=== PATIENT | male | born 1960 | race Caucasian/White ===

== ENCOUNTER → 2018-03-23 07:12 | Outpatient (CLI) | payer OTHER, SELFPAY ==
[2018-03-23 08:21] LABS: Add Manual Diff / Slide Review NO; Basophils Percent Auto 0.6 % (0-2); Eosinophils Percent Auto 1.7 % (2-4); Hematocrit 41.9 % (41-53); Hemoglobin 14.7 g/dL (13.5-17.5); Lymphocytes Percent Auto 23.1 % (25-40); Mean Corpuscular Hemoglobin 33.2 PG (26-34); Mean Corpuscular Volume 94.7 fL (80-100); Monocytes Percent Auto 12.4 % (3-14); Neutrophils Absolute Auto 3800 /uL (3000-5900); Neutrophils Percent Auto 62.2 % (50-75); Platelet Count 104 X10^3/uL (150-400); Red Blood Cell Count 4.43 X10^6/uL (4.5-5.9); Red Cell Distribution Width 14.6 % (11.6-14.8); White Blood Cell Count 6.2 X10^3/uL (4.5-11.0)
[2018-03-23 08:51] LABS: Cholesterol 225 mg/dL (140-199); HDL Cholesterol 43 mg/dL (40-60); LDL Cholesterol Calculated 153 mg/dL (<100); Lactate Dehydrogenase 423 U/L (313-618); Triglycerides 143 mg/dL (35-150)
[2018-03-23 09:09] LABS: Free T4, Direct Thyroxine 1.48 ng/dL (0.78-2.19)
[2018-03-23 09:21] LABS: Prostate Specific Antigen Scrn 0.277 ng/mL (0.1-4.0)
[2018-03-23 09:23] LABS: Thyroid Stimulating Hormone 0.04 uIU/mL (0.47-4.68)
[2018-03-23 11:52] LABS: Alanine Aminotransferase 69 IU/L (21-72); Albumin 4.5 g/dL (3.5-5.0); Albumin Globulin Ratio 1.6 (1.0-2.8); Alkaline Phosphatase 61 U/L (38-126); Aspartate Aminotransferase 40 IU/L (17-59); BUN Creatinine Ratio 21.4 (6-22); Bilirubin Total 0.5 mg/dL (0.2-1.3); Blood Urea Nitrogen 15 mg/dL (9-20); Calcium 9.5 mg/dL (8.4-10.2); Carbon Dioxide 25 mmol/L (22-32); Chloride 102 mmol/L (98-107); Estimated Glomerular Filt Rate > 60.0 mL/min (>60); Globulin 2.9 g/dL (1.7-4.1); Glucose 112 mg/dL (70-100); HEMOLYSIS < 15 (0-50); Potassium 4.5 mmol/L (3.4-5.1); Sodium 141 mmol/L (137-145); Total Protein 7.4 g/dL (6.3-8.2)
== END ==
PROVIDERS: PCP Family Medicine; Visit Provider Family Medicine
DX: Z85.79 Personal history of other malignant neoplasms of lymphoid, hematopoietic and related tissues (principal); Z12.5 Encounter for screening for malignant neoplasm of prostate; E78.5 Hyperlipidemia, unspecified; E03.9 Hypothyroidism, unspecified
CPT/HCPCS: 36415; 80053; 80061; 83615; 84439; 84443; 85025; G0103

== ENCOUNTER 2019-01-04 20:29 | Emergency (ER) | payer OTHER, SELFPAY ==
[2019-01-04 20:38] VITALS: BP 112/70; PULSE 77; RESP 15; TEMP 36.6; O2SAT 99; BMI 36.6
[2019-01-04] MEDS: SODIUM CHLORIDE 0.9% 1,000 ML 1000 ML IV ×2 (20:50→21:49)
[2019-01-04 20:52] LABS: Add Manual Diff / Slide Review NO; Basophils Absolute Auto 100 /uL (0-100); Basophils Percent Auto 0.7 % (0-2); Eosinophils Absolute Auto 100 /uL (0-450); Eosinophils Percent Auto 0.9 % (2-4); Hematocrit 50.6 % (41-53); Hemoglobin 17.6 g/dL (13.5-17.5); Lymphocytes Absolute Auto 2700 /uL (1100-4500); Lymphocytes Percent Auto 26.7 % (25-40); Mean Corpuscular HGB Conc 34.9 % (30-36); Mean Corpuscular Hemoglobin 32.9 PG (26-34); Mean Corpuscular Volume 94.4 fL (80-100); Monocytes Absolute Auto 1200 /uL (0-900); Monocytes Percent Auto 12.2 % (3-14); Neutrophils Absolute Auto 6000 /uL (1500-7000); Neutrophils Percent Auto 59.5 % (50-75); Platelet Count 125 X10^3/uL (150-400); Red Blood Cell Count 5.36 X10^6/uL (4.5-5.9); White Blood Cell Count 10.1 X10^3/uL (4.5-11.0)
--- NOTE | 2019-01-04 20:54 | ED.GENADULT ---
HPI - General Adult General Chief complaint: Syncope Stated complaint: syncope Time Seen by Provider: 01/04/19 20:35 Source: patient Mode of arrival: EMS Limitations: no limitations History of Present Illness HPI narrative: Patient is a 58-year-old male was brought in by EMS after having a syncopal event at home. Patient states that he has been doing a bowel prep at home for a routine colonoscopy scheduled for tomorrow. He states he did the 1st half of the bowel prep earlier this evening. He states that he has had multiple episodes of loose diarrhea which was not a surprise to him. He states that after his last episode he started to not feel well. He went to lay down was watching TV. He states that he felt like he needed to go the bathroom again and stood up and after going to the bathroom felt very lightheaded. He states that he fell forward. Did not hit his head. Did not completely lose consciousness. Did have an episode of stool incontinence while lying on the floor. Then started to have nausea and vomited. His called EMS who brought him into the emergency department for evaluation. Related Data Home Medications Medication Instructions Recorded Confirmed omega 9-nkm-hcq-fish oil [Fish Oil] 1 cap PO QDAY #0 04/19/17 02/19/18 multivitamin 1 cap PO DAILY 02/19/18 02/19/18 Previous Rx's Medication Instructions Recorded amoxicillin 875 mg-potassium 1 tab PO BID #14 tab 02/19/18 clavulanate 125 mg tablet levothyroxine 125 mcg tablet 125 mcg PO QDAY #30 tab 03/21/18 sertraline 50 mg tablet 50 mg PO QDAY #90 tab 08/24/18 Allergies Allergy/AdvReac Type Severity Reaction Status Date / Time No Known Drug Allergies Allergy Verified 01/04/19 20:38 Review of Systems Constitutional Constitutional: Denies fever(s), Denies headache(s) and Denies weakness ENT Ears, Nose, Mouth, and Throat: Reports dizziness, Denies headache(s), Denies neck pain and Reports disequilibrium Cardiovascular Cardiovascular: Denies chest pain, Reports syncope and Denies dyspnea Respiratory Respiratory: Denies dyspnea Gastrointestinal Gastrointestinal: Denies abdominal pain, Reports diarrhea, Reports nausea and Reports vomiting Genitourinary Genitourinary: Denies dysuria Musculoskeletal Musculoskeletal: Denies back pain, Denies myalgias, Denies arthralgias and Denies neck pain Integumentary/Breasts Skin/Breast: Denies lesions and Denies rash Neurologic Neurologic: Denies behavioral changes, Reports dizziness, Reports syncope, Denies headache(s), Reports disequilibrium and Denies weakness Psychiatric Psychiatric: Denies behavioral changes Hematologic/Lymphatic Hematologic/Lymphatic: Denies easy bleeding and Denies easy bruising Allergic/Immunologic Allergic/Immunologic: Denies urticaria PFS Medical History Anxiety (Chronic) Diverticular disease (Chronic ~1986) GERD (gastroesophageal reflux disease) (Chronic) Hip pain (Chronic) Hyperlipidemia (Resolved) Hypertension (Resolved) Hypogonadism (Chronic) Hypothyroidism (Chronic) Non-Hodgkin lymphoma (Resolved 2012) Obstructive sleep apnea (Chronic) Plantar fasciitis (Resolved 11/2015) Thrombocytopenia (Chronic) Surgical History (Updated 02/13/18 @ 17:26 by Carmen Sumner) History of colonoscopy (Resolved 01/19/07) Hx laparoscopic cholecystectomy (Resolved 2012) Hx of autologous stem cell transplant (Resolved 06/2013) Family History (Updated 02/13/18 @ 17:20 by Carmen Sumner) Father Type 2 diabetes mellitus with complication, unspecified intermediate accountant insulin use status Essential hypertension CAD (coronary artery disease) Mother Essential hypertension Diabetes mellitus CAD (coronary artery disease) Brother No problems noted. Brother No problems noted. Brother No problems noted. Brother No problems noted. Sister No problems noted. Sister No problems noted. Sister No problems noted. Sister No problems noted. Social History Smoking Status: Never smoker alcohol intake: current Family History (Updated 02/13/18 @ 17:20 by Carmen Sumner) Father Type 2 diabetes mellitus with complication, unspecified intermediate accountant insulin use status Essential hypertension CAD (coronary artery disease) Mother Essential hypertension Diabetes mellitus CAD (coronary artery disease) Brother No problems noted. Brother No problems noted. Brother No problems noted. Brother No problems noted. Sister No problems noted. Sister No problems noted. Sister No problems noted. Sister No problems noted. Social History Smoking Status: Never smoker alcohol intake: current Exam Initial Vital Signs Initial Vital Signs: Vital Signs Temperature 97.9 F 01/04/19 20:38 Pulse Rate 77 01/04/19 20:38 Respiratory Rate 15 01/04/19 20:38 Blood Pressure 112/70 01/04/19 20:38 Pulse Oximetry 99 01/04/19 20:38 Const General: diaphoretic Orientation: alert, awake and oriented x3 HENMT Head: normal to inspection and normocephalic Resp Effort & Inspection: normal respiratory effort Auscultation: clear to auscultation bilaterally Cardio Rate: regular rate Rhythm: regular rhythm GI Inspection: non-distended Palpation: soft Back/Spine/Pelvis Cervical Spine: No cervical spinal tenderness Thoracic/Lumbar Spine: No thoracic spinal tenderness and No lumbar spinal tenderness Skin Lesions: no lesions Rashes: no rashes Neuro General: alert, awake and oriented x3 Cognition: normal cognition Speech: speech normal Sensory Exam: no sensory deficits noted Extrem General: normal to inspection and capillary refill normal Psych Appearance: grossly normal and well kempt Course Orders Ordered: ED Orders 01/04/19 20:38 Complete Blood Count AUTO DIFF Stat Comprehensive Metabolic Panel Stat Troponin & CK Cardiac Panel Stat 01/04/19 20:41 EKG-12 Lead Stat Discontinued Medications Sodium Chloride (Normal Saline 0.9%) 1,000 mls @ 1,000 mls/hr IV BOLUS ONE Stop: 01/04/19 21:40 Last Infusion: 01/04/19 21:45 Dose: 1,000 mls/hr Documented by: Admin: 01/04/19 20:50 Dose: 1,000 mls/hr Documented by: ADRIANL Sodium Chloride (Normal Saline 0.9%) 1,000 mls @ 1,000 mls/hr IV BOLUS ONE Stop: 01/04/19 22:43 Last Infusion: 01/04/19 22:50 Dose: 1,000 mls/hr Documented by: Admin: 01/04/19 21:49 Dose: 1,000 mls/hr Documented by: LATHA Vital Signs Vital signs: Vital Signs - 8 hr 01/04/19 20:38 01/04/19 21:30 01/04/19 22:53 Temperature 97.9 F Pulse Rate 77 75 73 Respiratory Rate 15 16 13 Blood Pressure 112/70 Blood Pressure [Left Arm] 109/73 124/76 Pulse Oximetry 99 97 98 Medical Decision Making Lab Data Lab results reviewed: Yes I reviewed the patient's lab results. Result diagrams: 01/04/19 20:38 01/04/19 20:38 Labs: Lab Results 01/04/19 01/04/19 Range/Units 20:38 20:38 WBC 10.1 (4.5-11.0) X10^3/uL RBC 5.36 (4.5-5.9) X10^6/uL Hgb 17.6 H (13.5-17.5) g/dL Hct 50.6 (41-53) % MCV 94.4 (80-100) fL MCH 32.9 (26-34) PG MCHC 34.9 (30-36) % RDW 15.0 H (11.6-14.8) % Plt Count 125 L (150-400) X10^3/uL Neut % (Auto) 59.5 (50-75) % Lymph % (Auto) 26.7 (25-40) % [place] % (Auto) 12.2 (3-14) % Eos % (Auto) 0.9 L (2-4) % Baso % (Auto) 0.7 (0-2) % Neut # (Auto) 6000 (7272-6806) /uL Lymph # (Auto) 2700 (1431-3406) /uL [place] # (Auto) 1200 H (0-900) /uL Eos # (Auto) 100 (0-450) /uL Baso # (Auto) 100 (0-100) /uL Sodium 137 (137-145) mmol/L Potassium 3.7 (3.4-5.1) mmol/L Chloride 98 (98-107) mmol/L Carbon Dioxide 24 (22-32) mmol/L BUN 17 (9-20) mg/dL Creatinine 1.20 (0.66-1.25) mg/dL Estimated GFR > 60.0 (>60) mL/min BUN/Creatinine Ratio 14.2 (6-22) Glucose 157 H (70-100) mg/dL Calcium 10.6 H (8.4-10.2) mg/dL Total Bilirubin 0.9 (0.2-1.3) mg/dL AST 51 (17-59) IU/L ALT 75 H (21-72) IU/L Alkaline Phosphatase 73 (38-126) U/L Total Creatine Kinase 85 (55-170) U/L CK-MB (CK-2) TNP CK-MB (CK-2) Rel Index TNP Troponin I < 0.012 (0.01-0.034) ng/mL Total Protein 9.3 H (6.3-8.2) g/dL Albumin 5.3 H (3.5-5.0) g/dL Globulin 4.0 (1.7-4.1) g/dL Albumin/Globulin Ratio 1.3 (1.0-2.8) Point of Care Testing Glucose POC 126 Point of care testing: Point of Care Testing Glucose POC 126 ECG Data Attestation: I personally reviewed and interpreted this ECG as follows: Prior ECG tracings: not available for review Interpretation: Sinus rhythm Ventricular rate is 74 Right bundle-branch block No ST T wave changes MDM Narrative Medical decision making narrative: Patient arrived pale and diaphoretic. He has no injuries reported from the event. He has no neck pain. he was given fluids here in the emergency department and felt much better and was able to ambulate. I do suspect that his symptoms result of dehydration secondary to the bowel prep. He is not going to take the 2nd half of the prep given his current situation. I did inform him he should talk with his operative provider tomorrow. I do not feel that the episode that happened this evening should preclude him from having the procedure however this does need to be cleared by the operative provider he was informed to continue the rest of the preprocedure instructions except for holding on the 2nd half of the bowel prep. He expressed understanding and agreement with plan. Discharge Plan Departure Patient Disposition: Home Clinical Impression: Acute dehydration, Anxiety Syncope Qualifiers: Syncope type: unspecified Qualified Code(s): R55 - Syncope and collapse Discharge Date/Time: 01/04/19 23:44 Instructions: Fainting Activity Restrictions/Additional Instructions: Recommend you follow all of your preprocedure instructions given to you by the general surgeon. The events tonight do not necessarily prohibit you from having the colonoscopy tomorrow however talk with the operative provider. Return to the emergency department for any new or worsening symptoms Prescriptions: No Action multivitamin capsule 1 cap PO DAILY RF: 0 amoxicillin-pot clavulanate [Augmentin] 875-125 mg tablet 1 tab PO BID Qty: 14 RF: 0 omega 8-veh-odt-fish oil [Fish Oil] 1,000 MG capsule 1 cap PO QDAY Qty: 0 RF: 0 levothyroxine [Synthroid] 125 mcg tablet 125 mcg PO QDAY Qty: 30 RF: 2 sertraline 50 mg tablet 50 mg PO QDAY Qty: 90 RF: 1 Referrals: Jaylan Oliver MD [Primary Care Provider] -
[2019-01-04 21:03] LABS: Alanine Aminotransferase 75 IU/L (21-72); Albumin 5.3 g/dL (3.5-5.0); Albumin Globulin Ratio 1.3 (1.0-2.8); Alkaline Phosphatase 73 U/L (38-126); Aspartate Aminotransferase 51 IU/L (17-59); BUN Creatinine Ratio 14.2 (6-22); Bilirubin Total 0.9 mg/dL (0.2-1.3); Blood Urea Nitrogen 17 mg/dL (9-20); Calcium 10.6 mg/dL (8.4-10.2); Carbon Dioxide 24 mmol/L (22-32); Chloride 98 mmol/L (98-107); Creatine Kinase 85 U/L (55-170); Estimated Glomerular Filt Rate > 60.0 mL/min (>60); Glucose 157 mg/dL (70-100); HEMOLYSIS < 15 (0-50); Potassium 3.7 mmol/L (3.4-5.1); Sodium 137 mmol/L (137-145); Total Protein 9.3 g/dL (6.3-8.2)
[2019-01-04 21:15] LABS: Troponin I < 0.012 ng/mL (0.01-0.034)
[2019-01-04 21:30] VITALS: BP 109/73; PULSE 75; RESP 16; O2SAT 97
--- NOTE | 2019-01-04 21:33 | PC.NURSE ---
Pt states had a syncopal episode tonight while on toilet, denies any pain not taking blood thinners. Pt is prepping for a colonoscopy tomorrow. Diaphoretic upon arrival.
[2019-01-04 22:53] VITALS: BP 124/76; PULSE 73; RESP 13; O2SAT 98
--- NOTE | 2019-01-04 23:09 | PC.NURSE ---
ambulated pt around the department. Pt walked with steady gait. No complaints of dizziness or lightheadedness. Rn aware.
== END 2019-01-04 23:44 | disposition home or self-care (01) ==
PROVIDERS: Emergency Provider Emergency Medicine; PCP Family Medicine
DX: E86.0 Dehydration (principal); R55 Syncope and collapse
CPT/HCPCS: 36591; 80053; 82550; 82962; 84484; 85025; 93005; 93010; 96360; 96361; 99283; 99284

== ENCOUNTER 2019-01-05 07:38 | Day surgery (SDC) | payer OTHER, SELFPAY ==
--- NOTE | 2019-01-05 | PATH_ITS ---
[facility] Accession Number: [id number] . 01 Material submitted: . colon - POLYP AT 30 CM/SIGMOID COLON X2 . 01 Clinical history: . ENCOUNTER FOR SCREENING FOR MALIGNANT NEOPLASM . 02 Diagnosis: Sigmoid Colon, Polyps at 30 cm x2, Biopsies: Polypoid granulation tissue, consistent with inflammatory polyps. Negative for dysplasia and malignancy. V 01/08/2019 1009 Local . 02 Electronically signed: . Collette Chiu MD, Pathologist NPI- [id number] . 01 Gross description: . POLYP AT 30 CM/SIGMOID COLON X2: Received in formalin are 2 fragment(s) of vogel, soft tissue measuring 0.2 x 0.2 x 0.2 cm to 0.3 x 0.2 x 0.2 cm which is entirely submitted and submitted entirely in 1 cassette(s) /[facility] 01/05/2019 1918 Local . 02 Pathologist provided ICD-10: K63.5 . 02 CPT . 381856 Performed at: 01 [facility] [address] [facility] [address], [place], [place] [id number] MD Hector Oleary MD Phone: [phone] Performed at: 02 [facility] [address] [place], [place] [id number] MD Collette Chiu MD Phone: [phone]
[2019-01-05] MEDS: SODIUM CHLORIDE 0.9% 1,000 ML 200 ML IV (07:56)
[2019-01-05 08:11] VITALS: BP 129/80; PULSE 94; RESP 16; TEMP 36.2; O2SAT 97; BMI 36.1
--- NOTE | 2019-01-05 08:38 | P.HP_ITS ---
History of Present Illness History of Present Illness Date Patient Seen: 01/05/19 Time Patient Seen: 08:39 Chief complaint: [id number] Narrative: 58-year-old white male here for a screening colonoscopy. He has had several colonoscopies in the past with a history of diverticulitis beginning in his 20s. History is also significant for having a non-Hodgkin's lymphoma treated with stem cell therapy in 2013 he is cancer free at this time. Denies melena or hematochezia has no abdominal pain Patient History Medical History Anxiety (Chronic) Diverticular disease (Chronic ~1986) GERD (gastroesophageal reflux disease) (Chronic) Hip pain (Chronic) Hyperlipidemia (Resolved) Hypertension (Resolved) Hypogonadism (Chronic) Hypothyroidism (Chronic) Non-Hodgkin lymphoma (Resolved 2012) Obstructive sleep apnea (Chronic) Plantar fasciitis (Resolved 11/2015) Thrombocytopenia (Chronic) Surgical History History of colonoscopy (Resolved 01/19/07) Hx laparoscopic cholecystectomy (Resolved 2012) Hx of autologous stem cell transplant (Resolved 06/2013) Family History (Updated 02/13/18 @ 17:20 by Carmen Sumner) Father Type 2 diabetes mellitus with complication, unspecified long-term insulin use status Essential hypertension CAD (coronary artery disease) Mother Essential hypertension Diabetes mellitus CAD (coronary artery disease) Brother No problems noted. Brother No problems noted. Brother No problems noted. Brother No problems noted. Sister No problems noted. Sister No problems noted. Sister No problems noted. Sister No problems noted. Social History household members: spouse Smoking Status: Never smoker alcohol intake: current Family & Social History Family History Father Type 2 diabetes mellitus with complication, unspecified exterminator helper termite insulin use status Essential hypertension CAD (coronary artery disease) Mother Essential hypertension Diabetes mellitus CAD (coronary artery disease) Brother No problems noted. Brother No problems noted. Brother No problems noted. Brother No problems noted. Sister No problems noted. Sister No problems noted. Sister No problems noted. Sister No problems noted. Social History: household members spouse Tobacco & Substance use: Smoking Status Never smoker alcohol intake current alcohol intake frequency holiday/special occasion Substance Use Type does not use Meds Home Medications and Allergies Home Medications Medication Instructions Recorded Confirmed Type omega 5-fjg-kix-fish oil [Fish Oil] 1 cap PO QDAY #0 04/19/17 01/05/19 History amoxicillin 875 mg-potassium 1 tab PO BID #14 tab 02/19/18 Rx clavulanate 125 mg tablet multivitamin 1 cap PO DAILY 02/19/18 01/05/19 History levothyroxine 125 mcg tablet 125 mcg PO QDAY #30 tab 03/21/18 01/05/19 Rx sertraline 50 mg tablet 50 mg PO QDAY #90 tab 08/24/18 01/05/19 Rx levothyroxine 88 mcg PO DAILY 01/05/19 01/05/19 History Allergies Allergy/AdvReac Type Severity Reaction Status Date / Time No Known Drug Allergies Allergy Verified 01/05/19 08:18 Exam Vital Signs (past 8 hours): - 01/05/19 08:11 Temperature 97.1 F L Pulse Rate 94 H Respiratory Rate 16 Blood Pressure 129/80 Pulse Oximetry 97 Oxygen Delivery Method Room Air Narrative Exam Narrative: Patient is alert and oriented with no complaints Lungs are clear with no rales or wheezes Heart regular rhythm no murmur Abdomen soft no organomegaly Rectal be done at time of colonoscopy Assessment & Plan Assessment & Plan narrative: Patient here for screening colonoscopy with a history of non-Hodgkin's lymphoma history of diverticulitis no history of polyps.
[2019-01-05] MEDS: fentaNYL 250 MCG/5 ML INJ IV (09:44)
[2019-01-05] MEDS: MIDAZOLAM 5 MG/5 ML VIAL IV (09:45)
--- NOTE | 2019-01-05 09:46 | PM.OP.ENDO ---
Operative Date/Time/Diagnoses Date of procedure: 01/05/19 Time of procedure: 09:46 Pre-op diagnosis: Screening colonoscopy Post-op diagnosis: other (Sigmoid diverticulosis with 2 polyps found in the sigmoid colon each about 6 or 7 mm in diameter these were removed and submitted. They were at 30 cm in the sigmoid colon) Procedure & Clinicians Study performed: Colonoscopy to the cecum with polypectomy x2 at 30 cm Same procedure as scheduled: Yes Surgeon: Blake Lizarraga Procedure Notes SCOAP/Timeout: This was done Procedure in detail: The patient was properly identified during surgical pause he was given a total of 4 mg of Versed and 150 micro g of fentanyl and remained comfortable throughout the procedure the flexible fiberoptic colonoscope was inserted transanally to the cecum. Patient had sigmoid diverticulosis which was noted. This was also photographed. Was also found to have 2 small polyps 5-7 mm in diameter in the sigmoid colon at 30 cm. These were removed with a cold snare. Both polyps were submitted. No other significant abnormalities were encountered. Procedure was well tolerated. Scope withdrawal time: 11 Sedation minutes: 21 Findings: polyp Impression: Sigmoid diverticulosis 2 polyps in the sigmoid colon removed Post-procedure Recommendations: Colonscopy in 3 years Disposition: PACU
[2019-01-05 09:50] VITALS: BP 111/69; PULSE 84; RESP 12; TEMP 37.3; O2SAT 97
[2019-01-05 09:57] VITALS: BP 113/66; PULSE 79; RESP 11; O2SAT 97
[2019-01-05 10:02] VITALS: BP 106/76; PULSE 81; RESP 12; O2SAT 97
[2019-01-05 10:04] VITALS: BP 126/76; PULSE 80; RESP 14; TEMP 37; O2SAT 96
[2019-01-05 10:19] VITALS: BP 119/70; PULSE 77; RESP 16; TEMP 36.7; O2SAT 99
--- NOTE | 2019-01-05 10:33 | SUR.PHASEII ---
Daughter brought in, D/C instructions discussed, both voiced an understanding. Pt dressed and left when ready and left in stable condition.
== END 2019-01-05 10:35 | disposition home or self-care (01) ==
PROVIDERS: PCP Family Medicine; Visit Provider Surgery
PROC: 0DJD8ZZ Inspection of Lower Intestinal Tract, Via Natural or Artificial Opening Endoscopic (ICD-10-PCS; CPT 45378; principal; 2019-01-05 09:00)
DX: Z12.11 Encounter for screening for malignant neoplasm of colon (principal); F41.9 Anxiety disorder, unspecified; I10 Essential (primary) hypertension; E78.5 Hyperlipidemia, unspecified; E03.8 Other specified hypothyroidism; K57.30 Diverticulosis of large intestine without perforation or abscess without bleeding; D12.5 Benign neoplasm of sigmoid colon
CPT/HCPCS: 45385; 99152; J2250; J3010

== ENCOUNTER → 2019-10-01 16:02 | Outpatient (CLI) | payer OTHER, SELFPAY ==
[2019-10-01 18:24] LABS: Testosterone 175 ng/dL (71.8-623)
== END ==
PROVIDERS: PCP Family Medicine; Referring Provider Family Medicine; Visit Provider Family Medicine
DX: E29.1 Testicular hypofunction (principal)
CPT/HCPCS: 36415; 84403

== ENCOUNTER 2023-05-19 07:44 | Day surgery (SDC) | payer BC, SELFPAY ==
--- NOTE | 2023-05-19 | PATH_ITS ---
[facility] Accession Number: [id number] No. of containers..05 Tissue . 01 Material submitted: . PART A: cecum - CECAL POLYPS X 3 PART B: colon - TRANSVERSE POLYP PART C: colon - DESCENDING POLYPS X 3 PART D: sigmoid colon - SIGMOID POLYP PART E: rectum - RECTAL POLYP . 01 Diagnosis: A. Cecal Polyps, Biopsy: Inflammatory polyps. Additional colonic mucosa with benign lymphoid aggregate. . B. Transverse Colon Polyp, Biopsy: Inflammatory polyp. . C. Descending Colon Polyps, Biopsy: Tubular adenomas. . D. Sigmoid Colon Polyp, Biopsy: Inflammatory polyp. . E. Rectal Polyp, Biopsy: Inflammatory polyp. [facility] 05/23/2023 1610 Local . 01 Electronically signed: . Mela Yrok MD, Pathologist NPI- [id number] . 01 Gross description: . Part A: CECAL POLYPS X 3: Received in formalin are multiple fragment(s) of vogel, soft tissue measuring 0.3 x 0.3 x 0.3 cm to 1.2 x 0.2 x 0.2 cm submitted entirely in 1 cassette(s) Part B: TRANSVERSE POLYP: Received in formalin is 1 fragment(s) of vogel, soft tissue measuring 0.5 x 0.3 x 0.3 cm submitted entirely in 1 cassette(s) Part C: DESCENDING POLYPS X 3: Received in formalin are 3 fragment(s) of vogel, soft tissue measuring 0.3 x 0.3 x 0.3 cm to 0.7 x 0.6 x 0.5 cm submitted entirely in 1 cassette(s) Part D: SIGMOID POLYP: Received in formalin are 2 fragment(s) of vogel, soft tissue measuring 0.2 x 0.2 x 0.2 cm to 0.7 x 0.6 x 0.6 cm submitted entirely in 1 cassette(s) Part E: RECTAL POLYP: Received in formalin is 1 fragment(s) of vogel, soft tissue measuring 0.5 x 0.4 x 0.4 cm submitted entirely in 1 cassette(s) /[facility] 05/20/2023 2213 Local . 01 Pathologist provided ICD-10: D12.4, K51.40, K63.89 . 01 CPT . 418017, 103276, 085909, 538788, 108854 Specimen Comment: A courtesy copy of this report has been sent to [phone] Performed at: 01 [facility] [address] [address], [place], [place] [id number] MD Hector Oleary MD Phone: [phone]
--- NOTE | 2023-05-19 09:02 | P.HP_ITS ---
History of Present Illness History of Present Illness Date Patient Seen: 05/19/23 Time Patient Seen: 09:02 Chief complaint: Colonoscopy Narrative: Garry is a 63-year-old man who is here for colonoscopy. He is last colonoscopy was in 2019 and 2 adenomatous polyps were removed. The recommendation was to have another 1 in 3 years. He had a sleeve gastrectomy last year. Although he has a history of thrombocytopenia due to his stem cell transplant he has not needed to have platelet transfusions for prior procedures. [facility] Medical History (Updated 05/19/23 @ 09:03 by Delfin Gonzalez MD) Hip pain Anxiety Thrombocytopenia Hyperlipidemia Hypertension Obstructive sleep apnea Plantar fasciitis (11/2015) Hypothyroidism Hypogonadism Non-Hodgkin lymphoma (2012) Diverticular disease (~1986) GERD (gastroesophageal reflux disease) Surgical History History of colonoscopy (01/19/07) Hx laparoscopic cholecystectomy (2012) Hx of autologous stem cell transplant (06/2013) Family History Father Type 2 diabetes mellitus with complication, unspecified extermination supervisor insulin use status Essential hypertension CAD (coronary artery disease) Mother Essential hypertension Diabetes mellitus CAD (coronary artery disease) Brother No problems noted. Brother No problems noted. Brother No problems noted. Brother No problems noted. Sister No problems noted. Sister No problems noted. Sister No problems noted. Sister No problems noted. Social History household members: spouse Smoking Status: Never smoker alcohol intake: current Meds Home Medications and Allergies Home Medications Medication Instructions Recorded Confirmed Type omega 1-ueg-hgo-fish oil 1,000 mg 1 cap PO QDAY ##0 04/19/17 01/05/19 History (120 mg-180 mg) capsule (Fish Oil) multivitamin 1 cap PO DAILY 02/19/18 01/05/19 History levothyroxine 125 mcg tablet 125 mcg PO QDAY #30 tabs 03/21/18 01/05/19 Rx (Synthroid) sertraline 50 mg tablet 50 mg PO QDAY #90 tabs 08/24/18 01/05/19 Rx levothyroxine 88 mcg tablet 88 mcg PO DAILY 01/05/19 05/19/23 History sodium,potassium,mag sulfates 17.5 See Rx Instructions PO .COMPLEX 03/23/23 Rx gram-3.13 gram-1.6 gram oral soln #354 mL (Suprep Bowel Prep Kit) Allergies Allergy/AdvReac Type Severity Reaction Status Date / Time No Known Drug Allergies Allergy Verified 05/19/23 08:42 Exam Const General: healthy appearing and No acute distress Objective Labs 05/19/23 08:48 Assessment & Plan Assessment and plan (1) History of adenomatous polyp of colon: Status: Acute Plan We reviewed the risks and benefits of colonoscopy for history of adenomatous polyps and he would like to proceed.
[2023-05-19 09:06] VITALS: BP 114/78; PULSE 79; RESP 19; TEMP 36.2; O2SAT 99
[2023-05-19 09:08] LABS: Add Manual Diff / Slide Review NO; Basophils Absolute Auto 100 /uL (0-100); Basophils Percent Auto 0.8 % (0-2); Eosinophils Absolute Auto 100 /uL (0-450); Eosinophils Percent Auto 1.2 % (2-4); Hematocrit 53.9 % (41-53); Hemoglobin 18.5 g/dL (13.5-17.5); Lymphocytes Absolute Auto 1300 /uL (1100-4500); Lymphocytes Percent Auto 20.3 % (25-40); Mean Corpuscular HGB Conc 34.3 % (30-36); Mean Corpuscular Hemoglobin 31.8 PG (26-34); Mean Corpuscular Volume 92.8 fL (80-100); Monocytes Absolute Auto 700 /uL (0-900); Monocytes Percent Auto 11.1 % (3-14); Neutrophils Absolute Auto 4400 /uL (1500-7000); Neutrophils Percent Auto 66.6 % (50-75); Platelet Count 106 X10^3/uL (150-400); Red Blood Cell Count 5.81 X10^6/uL (4.5-5.9); White Blood Cell Count 6.6 X10^3/uL (4.5-11.0)
[2023-05-19] MEDS: LACTATED RINGERS 1,000 ML 42 ML IV ×2 (09:13→10:05)
--- NOTE | 2023-05-19 09:51 | PM.OP.COLON ---
Operative Date/Time/Diagnoses Date of procedure: 05/19/23 Time of procedure: 09:51 Pre-op diagnosis: History of polyps Post-op diagnosis: same Procedure & Clinicians Study performed: Colonoscopy Same procedure as scheduled: Yes Surgeon: Delfin Gonzalez Procedure Notes Procedure in detail: Surgeon: Delfin Gonzalez MD Anesthesia: Robi Reyes MD Procedure: The patient was brought to the endoscopy suite, placed in left lateral decubitus position. The patient was connected to monitoring devices. A time-out was performed. Sedation was administered. Once the patient was adequately sedated, a digital rectal exam was performed and was normal. The scope was then inserted and advanced to the cecum where the appendiceal orifice was identified and photographed. The scope was then slowly withdrawn over greater than 6 minutes. The mucosa was thoroughly inspected. There were 3 5 mm polyps in the cecum, all removed with cold snare and sent together. There was 1 5 mm polyps in the transverse colon removed with cold snare. Two 5 mm polyps and an 8 mm polyp were removed from the descending colon with a cold snare. A clip was applied to the 8 mm polypectomy site with good hemostasis. A 1 cm polyp on a stalk was removed from the sigmoid colon with a cold snare. Good hemostasis was observed from all polypectomy sites by the conclusion of the case. The scope was retroflexed in the rectum. Some internal hemorrhoids were noted. The scope was straightened and removed. The patient was awakened and brought to recovery. Scope withdrawal time: 28 minutes Sedation time: 34 minutes EBL: 10 mL Findings: 3 subcentimeter cecal polyps, 1 subcentimeter transverse colon polyp, 3 subcentimeter descending colon polyps and a 1 cm rectal polyp Post-procedure Disposition: PACU
[2023-05-19 09:54] VITALS: BP 83/53; PULSE 75; RESP 11; TEMP 37.3; O2SAT 95
[2023-05-19 09:56] VITALS: BP 85/56; PULSE 74; RESP 16; O2SAT 95
[2023-05-19 09:59] VITALS: BP 89/61; PULSE 74; RESP 18; O2SAT 96
[2023-05-19 10:09] VITALS: BP 94/61; PULSE 67; RESP 11; O2SAT 98
[2023-05-19 10:15] VITALS: BP 102/64; PULSE 73; RESP 16; O2SAT 98
== END 2023-05-19 10:50 | disposition home or self-care (01) ==
PROVIDERS: Student in an Organized Health Care Education/Training Program; PCP Family Medicine; Referring Provider Surgery; Visit Provider Surgery
PROC: 0DJD8ZZ Inspection of Lower Intestinal Tract, Via Natural or Artificial Opening Endoscopic (ICD-10-PCS; CPT 45378; principal; 2023-05-19 08:45)
DX: Z12.11 Encounter for screening for malignant neoplasm of colon (principal); Z86.010 Personal history of colon polyps; K64.8 Other hemorrhoids
CPT/HCPCS: 45385; 85025; J2250; J2704